=== PATIENT | female | born 1990 | race Caucasian/White ===

== ENCOUNTER 2025-03-02 17:06 | Emergency (ER) | payer BC ==
[~2025-03-02] VITALS: Ht 177.8 cm; Wt 94.8 kg
[2025-03-02] MEDS ORDERED: IBUPROFEN600 MG PO (21:37)
[2025-03-02] MEDS ORDERED: CEPHALEXIN500 MG PO (21:37)
[2025-03-02] MEDS ORDERED: SALINE NOSE SPR45 ML NASAL (23:31)
== END 2025-03-02 22:38 | disposition home or self-care (01) ==
LOC: ER 18:05
DX: S61.309A Unspecified open wound of unspecified finger with damage to nail, initial encounter (principal); W19.XXXA Unspecified fall, initial encounter; Y93.89 Activity, other specified; Y92.830 Public park as the place of occurrence of the external cause; Y99.8 Other external cause status